=== PATIENT | male | born 1955 | race Caucasian/White ===

== ENCOUNTER 2023-09-16 11:52 | Outpatient (CLI) | payer BC, MEDICARE ==
[~2023-09-16 11:52] MED LIST: 0.9 % Sodium Chloride 20 ML, Lidocaine 1% PF 5 ML, Iopamidol 5 ML, EPINEPHrine 0.1 MG FS SCH
[2023-09-16] MEDS ORDERED: Sodium Bicarbonate 2.5 MEQ/5 ML SDV ONE (12:14)
== END 2023-09-16 11:53 | disposition home or self-care (01) ==
LOC: RAD 11:52
PROVIDERS: ATTEND Orthopaedic Surgery
DX: M12.812 Other specific arthropathies, not elsewhere classified, left shoulder (principal); M75.102 Unspecified rotator cuff tear or rupture of left shoulder, not specified as traumatic
CPT/HCPCS: 23350; 73201; 77002; J0171; Q9967

== ENCOUNTER 2024-01-08 08:24 | Emergency (ER) | payer BC, MEDICARE | END 2024-01-08 10:47 | disposition home or self-care (01) | LOC: ERS 08:24 | DX: R33.9 Retention of urine, unspecified (principal) | CPT/HCPCS: 51702; 99283 ==

== ENCOUNTER 2024-01-24 21:35 | Emergency (ER) | payer BC, MEDICARE ==
[2024-01-25 00:40] LABS: Bacteria/HPF None Seen HPF (None Seen); Bilirubin Negative (Negative); Blood, Urine 3+ (Negative); CAUTI Indications for Culture Acute Hematuria; Clarity Clear (Clear); Glucose, Urine (Dipstick) Normal (Negative); Ketone, Urine Negative (Negative); Leukocyte Negative Leu/uL (Negative); Nitrite Negative (Negative); Protein, Urine (Dipstick) 10 mg/dL (Neg-Trace); RBC/HPF Greater than 50 HPF (0-3); Specific Gravity, Urine 1.021 (1.002-1.036); Squamous Epithelial 0-3 HPF (0-3); Urobilinogen Normal mg/dL (Less than 2); pH, Urine 5.5 (5.0-9.0)
[2024-01-25 00:41] LABS: Urine Culture Reflex No No
== END 2024-01-25 01:05 | disposition home or self-care (01) ==
LOC: ERS 21:35
DX: R33.9 Retention of urine, unspecified (principal)
CPT/HCPCS: 51702; 81001